=== PATIENT | female | born 1965 | race Caucasian/White ===

== ENCOUNTER 2016-10-08 | Emergency (ER) | payer OTHER ==
[~2016-10-08] MED LIST: ACETAMINOPHEN120 ML PO; ADVAIR 10028 BLISTER INH; ADVAIR 2501 DISK W/D; ALBUTEROL NEB; ALBUTEROL17 GM INH; ALKA-SELTZ PLUS1 CAP PO; BENTYL20 M1 PO; BLOOD PRESSURE MED; DIOVAN160 M PO; FLEXERIL10 MG PO; MOTRIN600 MG; MUCINEX600 MG PO; NORCO 5/325 TAB1 TAB PO; NYQUIL; OMEPRAZOLE40 M1 PO; PERCOCET 5/3251 TAB PO; PROVENTIL HFA6.7 GM IH; PROVENTIL17 GM; PROVENTIL17 GM IH; ROBITUSSIN-DM120 ML PO; TYLENOL #31 TA1 PO; ZITHROMAX250 MG PO; ZITHROMAX250MG Z-PAK PO; ZOFRAN ODT4 MG/UDTAB PO
[2016-10-08] MEDS ORDERED: DIOVAN160 M1 PO (14:52)
[2016-10-08] MEDS ORDERED: EFFEXOR XR75 M1 PO (14:53)
== END 2016-10-08 17:55 ==
DX: S50.01XA Contusion of right elbow, initial encounter (principal); R55 Syncope and collapse; I10 Essential (primary) hypertension; Z90.710 Acquired absence of both cervix and uterus; Z90.49 Acquired absence of other specified parts of digestive tract; Z79.899 Other long term (current) drug therapy; W18.30XA Fall on same level, unspecified, initial encounter; Y92.012 Bathroom of single-family (private) house as the place of occurrence of the external cause